=== PATIENT | female | born 1995 | race Caucasian/White ===

== ENCOUNTER 2020-05-11 13:17 | Outpatient (REF) | payer MEDICAID, SELFPAY | END 2020-05-11 13:18 | disposition home or self-care (01) | LOC: HO.LAB 13:17 | PROVIDERS: Visit Provider Internal Medicine | DX: Z20.828 Contact with and (suspected) exposure to other viral communicable diseases (principal) | CPT/HCPCS: C9803; U0003 ==

== ENCOUNTER 2022-03-25 08:57 | Day surgery (SDC) | payer MEDICAID, SELFPAY ==
[2022-02-27 10:45] VITALS: BMI 38.3
--- NOTE | 2022-03-03 10:23 | HO.ANESPROP2 ---
HPI - Anesthesia Eval Consult details Narrative: 26yo F for Colonoscopy PMFSH Active Problems Active Problems: All Active Problems (Updated 03/03/22 @ 09:38 by Reena Dowling, RN) Exposure to COVID-19 virus (Acute) Past Medical History Medical History (Updated 03/03/22 @ 09:38 by Reena Dowling, RN) Back pain Hx of Clostridium difficile infection Hx: UTI (urinary tract infection) Surgical History Surgical History (Updated 03/03/22 @ 09:39 by Reena Dowling RN) Previous section Meds Allergies Allergy/AdvReac Type Severity Reaction Status Date / Time Penicillins Allergy Unknown Verified 02/27/22 10:52 Exam Exam Date and Time: March 03, 2022 1023 Height,Weight and Vital Signs: Height 5 ft 1 in Weight 92.079 kg Assessment and Plan Assessment Anesthesia Assessment: Chart Reviewed
--- NOTE | 2022-03-24 10:59 | HO.ANESPROP2 ---
Documented by User: Sherri Carvalho NP 03/24/22 11:00 HPI - Anesthesia Eval Consult details Narrative: 26yo F for Colonoscopy PMFSH Active Problems Active Problems: All Active Problems (Updated 03/03/22 @ 09:38 by Reena Dowling, RN) Exposure to COVID-19 virus (Acute) Past Medical History Medical History Back pain Hx of Clostridium difficile infection Hx: UTI (urinary tract infection) Surgical History Surgical History (Updated 03/03/22 @ 09:39 by Reena Dowling, RN) Previous section Social History Social History Patient Tobacco Use Status: Current someday Tobacco user Tobacco use type: Cigarette Cigarettes Per Day: 44 Years Smoked: 7 Smoked in Last 30 Days: Yes Use of substances other than those prescribed or required for medical reasons: No Are you DNR?: No Advance Directives: No Advance Directives Information Provided: Yes Meds Allergies Allergy/AdvReac Type Severity Reaction Status Date / Time Penicillins Allergy Unknown Verified 03/25/22 09:53 Home Medications Medication Instructions Recorded Confirmed Last Taken Type Nexplanon 03/25/22 03/25/22 Unknown History Exam Exam Date and Time: March 24, 2022 1059 Height,Weight and Vital Signs: Height 5 ft 1 in Weight 92.079 kg Assessment and Plan Assessment Anesthesia Assessment: Chart Reviewed Documented by User: Yaya Banks MD 03/25/22 10:32 PMFSH Past Medical History Medical History Back pain Hx of Clostridium difficile infection Hx: UTI (urinary tract infection) Family History Family history of problems with anesthesia: No Surgical History Surgical History (Updated 03/03/22 @ 09:39 by Reena Dowling RN) Previous section History of Problems with Anesthesia: No Social History Social History Patient Tobacco Use Status: Current someday Tobacco user Tobacco use type: Cigarette Cigarettes Per Day: 44 Years Smoked: 7 Smoked in Last 30 Days: Yes Use of substances other than those prescribed or required for medical reasons: No Are you DNR?: No Advance Directives: No Advance Directives Information Provided: Yes Meds Allergies Allergy/AdvReac Type Severity Reaction Status Date / Time Penicillins Allergy Unknown Verified 03/25/22 09:53 Home Medications Medication Instructions Recorded Confirmed Last Taken Type Nexplanon 03/25/22 03/25/22 Unknown History Exam Airway Mallampati Class: III TM Dist: >3cm Neck ROM: Full Loose/Missing/Broken Teeth: No Heart: rrr Lungs: clear Assessment and Plan Final Anesthetic Review Family History of Problems with Anesthesia: No History of Problems with Anesthesia: No NPO: Yes ASA Class: II Final Preanesthetic Review: No Changes in Pt Med Stat, Meds/Allgs Chart Reviewed, Consent Obtained/Reviewed and Anes Risks/Benef Reviewed Patient Risk: Intermediate Procedure Risk: Low Anesthetic Plan Anesthetic Plan: MAC: Disposition: Standard PACU
[2022-03-25 09:47] VITALS: BMI 35.9
[2022-03-25 09:54] VITALS: BP 125/74; PULSE 84; RESP 16; TEMP 36.6; O2SAT 100
[2022-03-25 10:00] LABS: UPreg QC Valid YES; Urine Pregnancy NEGATIVE (NEGATIVE)
--- NOTE | 2022-03-25 10:30 | MHC.SHP ---
Pre-Procedural Eval Section A Date of Service: 03/25/22 Section B Chief Complaint: digestive problems Details of Present Illness: see H*P no changes Relevant Family History (Specify if Yes): No Relevant Social History: Tobacco Use Present Medications: None Medical History: No relevant PMH History of Previous Operations: No relevant previous surgery Allergies: Allergies Allergy/AdvReac Type Severity Reaction Status Date / Time Penicillins Allergy Unknown Verified 03/25/22 09:53 Review of Systems Sugical H&P ROS: Negative: Constitution, Cardiovascular, Respiratory, Neurological, Psychiatric, Hem-Onc, Allergic/Immunologic, Gastrointestinal, Genitourinary, Musculoskeletal, Integumentary, Endocrine and Eyes/Ears/Nose/Throat Exam Surgical H&P Exam: Normal: HEENT, Normal: Heart, Normal: Lungs, Normal: Extremities, Normal: Abdomen, Normal: Skin and Normal: Neurological Plan Diagnosis/Plan: Unchanged I have reviewed the history and physical and performed a pertinent physical examination on my patient. No changes have occurred unless specified.
[2022-03-25] MEDS: Lactated Ringers 1,000 ML 100 ML IVCONT (10:36)
--- NOTE | 2022-03-25 11:05 | P.BOP_ITS ---
Brief Operative Note Date of Service: 03/25/22 Pre-op diagnosis: change in bowels Post-op diagnosis: same Procedure: colonooscopy Surgeon: Truman Polanco Anesthesia: MAC Was an It Network Administrator used for this Procedure?: No Estimated blood loss (mL): 2 Pathology: other Condition: stable Disposition: PACU
[2022-03-25 11:08] VITALS: BP 122/75; PULSE 72; RESP 20; TEMP 37; O2SAT 100
[2022-03-25 11:23] VITALS: BP 140/90; PULSE 65; RESP 20; O2SAT 100
--- NOTE | 2022-03-25 11:29 | OP_ITS ---
SURGEON: Truman Polanco MD INDICATIONS: Change in bowel habits PREOPERATIVE DIAGNOSIS: POSTOPERATIVE DIAGNOSIS: PROCEDURE PERFORMED: Colonoscopy to the terminal ileum with biopsy. ESTIMATED BLOOD LOSS: COMPLICATIONS: ANESTHESIA: Monitored anesthesia care. ASSISTANTS: SPECIMENS: DESCRIPTION OF PROCEDURE: History and physical were performed. The risks and benefits of the procedure were explained to the patient. Informed consent was obtained. The patient was placed in the left lateral decubitus position. A digital rectal exam was performed and was found to be normal. The Olympus pediatric video colonoscope was introduced into the rectum and advanced to the cecum without difficulty. The cecum was identified by transillumination, palpation, and identification of ileocecal valve examination was performed. The scope was removed. She tolerated the procedure well and was taken to the recovery area in stable condition. The procedure was performed on 03/25/2022. FINDINGS: The terminal ileum was normal. The visualized colonic mucosa was normal. The quality of the prep was good. No polyps were identified. There was no evidence of colitis or Crohn disease. Biopsies were obtained from the terminal ileum and sigmoid. Retroflexed examination was normal. IMPRESSION: Normal colonoscopy. RECOMMENDATION: 1. Follow up the biopsy results. 2. Colon cancer screening should be started at age 45 and performed every 10 years in this average risk individuals. MD MAHIN Sibley/KESHA / [id number]
[2022-03-25 11:35] VITALS: BP 126/72; PULSE 66; RESP 16; TEMP 36.4; O2SAT 100
== END 2022-03-25 12:10 | disposition home or self-care (01) ==
PROVIDERS: Nurse Practitioner; Visit Provider Internal Medicine Gastroenterology
PROC: 0DJD8ZZ Inspection of Lower Intestinal Tract, Via Natural or Artificial Opening Endoscopic (ICD-10-PCS; CPT 45378; principal; 2022-03-25 10:30)
DX: R19.4 Change in bowel habit (principal); Z86.19 Personal history of other infectious and parasitic diseases; M54.9 Dorsalgia, unspecified; Z87.440 Personal history of urinary (tract) infections; F17.210 Nicotine dependence, cigarettes, uncomplicated; Z88.0 Allergy status to penicillin
CPT/HCPCS: 45380; 81025; 88305

== ENCOUNTER 2023-02-07 15:40 | Emergency (ER) | payer MEDICAID, SELFPAY ==
--- NOTE | ~2023-02-07 | US_ITS ---
EXAMINATION: US VENOUS ULTRASOUND WITH DOPPLER LOWER EXTREMITY, LEFT CLINICAL INFORMATION: Left lower extremity pain and swelling COMPARISON: None available. TECHNIQUE: Ultrasound of the deep veins is performed from the hip to the calf with compression sonography and color and pulse Doppler assessment. Spectral analysis with color-flow imaging is performed. FINDINGS: There is normal venous compression and respiratory variation and augmented flow. The visualized common femoral vein, superficial femoral vein, profunda femoral vein, popliteal vein, and the trifurcation region shows no evidence of deep venous thrombosis. There is no significant popliteal fossa cyst. If the patient's symptoms persist, followup ultrasound in 5 days 7 days might be of value to exclude proximal propagation from a non-visualized calf vein. US/US venous duplex LE LT IMPRESSION: No DVT demonstrated in the left lower extremity.
--- NOTE | 2023-02-07 15:43 | ED_ITS ---
HPI - Extremity Injury (Lower) General Chief Complaint: Extremity Injury, Lower Stated Complaint: left lower leg swelling Time Seen by Provider: 02/07/23 16:45 Source: patient Mode of arrival: ambulatory Limitations: no limitations History of Present Illness HPI Narrative: Patient is a 27-year-old female presenting to the emergency department with several days of left calf swelling and tightness. Reports that she does walk extensively for work. Denies any falls or other injuries. States she had her Nexplanon implant removed in December. She does smoke via vape. She denies any chest pain or shortness of breath. complaint: other (leg pain) Onset (ago): day(s) Severity: moderate Relieving factors: rest Exacerbating factors: weight bearing Other symptoms: none Related Data Home Medications Medication Instructions Recorded Confirmed Nexplanon 03/25/22 03/25/22 Allergies Allergy/AdvReac Type Severity Reaction Status Date / Time Penicillins Allergy Unknown Verified 03/25/22 09:53 Review of Systems Review of Systems: As per HPI. Yes all other systems are reviewed and are negative Constitutional: Constitutional: Reports as per HPI PMFSH Past Medical History Medical History Back pain Hx of Clostridium difficile infection Hx: UTI (urinary tract infection) Surgical History (Updated 03/03/22 @ 09:39 by Reena Dowling RN) Previous section Social History Social History Patient Tobacco Use Status: Current someday Tobacco user Tobacco use type: Cigarette Cigarettes Per Day: 44 Years Smoked: 7 Advance Directives: No Advance Directives Information Provided: No Physical Exam Vital Signs: Vital Signs: Last Vital Signs Temp 98.2 F 02/07/23 15:44 Pulse 88 02/07/23 15:44 Resp 18 02/07/23 15:44 BP 153/88 H 02/07/23 15:44 Pulse Ox 100 02/07/23 15:44 O2 Del Method Room Air 02/07/23 15:44 BMI result Body Mass Index 35.9 Vital signs have been reviewed and appear to be correct. Blood pressure elevated. Heart rate normal. Respiratory rate normal. Temperature normal. Oxygen saturation normal. Const: General: cooperative, healthy appearing and no acute distress Orientation/consciousness: oriented to person, oriented to place, oriented to time and patient oriented x3 Limitations: no limitations HEENT: Head: Yes normocephalic and Yes atraumatic Ears: external ears normal General nose exam: Normal external nose present Face and sinus: Yes face symmetric Mouth: oropharynx normal and moist mucous membranes Throat: Yes uvula midline Eyes: Pupils: Equal, round and reactive pupils present Neck: Neck: Yes normal visual inspection and Yes supple Resp: Effort & Inspection: normal respiratory effort and able to speak in complete sentences Auscultation: clear to auscultation bilaterally Cardio: Rate: regular rate Rhythm: regular rhythm Heart sounds: S1 normal heart sound present and S2 normal heart sound present GI: Palpation (GI): Soft to palpation and nontender Auscultation: normoactive bowel sounds : General: Yes no CVA tenderness Back/Spine/Pelvis: Back: no CVA tenderness Skin: General skin exam: elasticity normal and turgor normal Neuro: General: oriented to person, oriented to place, oriented to time, patient oriented x3, gait normal, tone normal, moves all extremities, Normal light touch and pain sensation, no focal motor deficits, CN's II-XI intact bilaterally, normal sensation to monofilament and deep tendon reflexes 2+ bilaterally Cranial nerves: Yes Equal, round and reactive pupils present Cognition (Neuro): normal cognition Motor exam (neuro): 5/5 motor strength present throughout, Normal motor muscle tone present throughout and Motor abnormalities not present Sensory Exam: Normal double simultaneous stimulation for sensation Extrem: General: Yes full ROM, Yes normal exam except as noted, Yes no pedal edema and Yes no calf tenderness Left lower extremity: lower leg Details: normal to inspection, tenderness Location: of the posterior calf, localized s welling Location: of the proximal lower leg (mild) and no edema; no erythema, no palpable cords, no ecchymosis and no unusual warmth Psych: Mental Status: mental status grossly normal Affect: normal affect Thought process: Normal thought process present Course Course Course Narrative: RME: 27yo F w/no sig PMHx c/o LLE pain and swelling/tightness x3-4 days. Admits had Nexplonon removed at the end of December & smoking Vapes. Denies recent travel or hx clots. Also reports mild SOB x4 days LLE with mild swelling, no calf ttp, NV intact US & D-dimer ordered Full HPI, ROS and PE to be performed by primary ED provider. Medical Decision Making Medical Decision Making [facility] [place] Narrative: Patient is a 27-year-old female presenting to the emergency department with several days of left calf swelling and tightness. On exam patient is awake, A+Ox3, VS WNL, afebrile, normal neurological exam without focal deficits, tenderness to left calf and popliteal fossa, mild swelling appreciated, 5/5 strength, full ROM to knee, 2+ DP and PT pulses, DTRs 2+. Given reported symptoms and physical exam findings, initial differential includes DVT, calf strain, cellulitis, Gutiérrez's cyst. Ultrasound notable for no DVT, no popliteal fossa cyst. Discussed results with patient and that pain is likely related to a muscle strain. Will provide patient with an Wilbert wrap in the ED. Instructed patient to follow-up with her PCP as she may require a repeat ultrasound if symptoms persist. Return precautions discussed at bedside. Advised patient alternate Tylenol and ibuprofen, apply ice several times daily, warm baths with Epsom salts. Patient verbalized understanding of and agreement with plan. Differential Diagnosis Differential Diagnoses: The differential diagnosis associated with the presentation includes As per [facility] [place]. Lab Data [facility] [place] Lab Attestation statement: I reviewed the patient's lab results. As per [facility] [place] Labs: Lab Results 02/07/23 Range/Units 16:55 D-Dimer High Sensitivty < 150 NG/ML Independent Interpretation I performed an independent interpretation of an: Ultrasound Interpretation: No DVT or cyst Radiology Impression Discussion of test interpretation with radiology: I have reviewed the radiologist's reading. Radiologist Impression: INDINGS: There is normal venous compression and respiratory variation and augmented flow. The visualized common femoral vein, superficial femoral vein, profunda femoral vein, popliteal vein, and the trifurcation region shows no evidence of deep venous thrombosis. ? There is no significant popliteal fossa cyst. If the patient's symptoms persist, followup ultrasound in 5 days 7 days might be of value to exclude proximal propagation from a non-visualized calf vein. US/US venous duplex LE IMPRESSION: No DVT demonstrated in the left lower extremity. External Record Review External record reviewed: Inpatient record, Office record and Outpatient record Discharge Plan Discharge Clinical Impression: Pain of left calf Patient Disposition: Home, Self-Care Instructions: Leg Cramps (ED), Leg Pain (ED) Additional Instructions: You are evaluated in the emergency department today for left calf pain. Your ultrasound did not show evidence of a DVT, also known as a blood clot, or a cyst. Your pain is likely related to a muscle strain. You can take 600 mg ibuprofen or 650 mg Tylenol every 6 hours as needed for discomfort. Elevate your leg while at rest and perform gentle stretching exercises several times daily. You can apply ice for 10-15 minutes at a time several times daily, using caution not to apply ice directly to skin. You can take warm baths with Epsom salts. Please follow-up with your primary care provider this week. If symptoms persist, you may need require a repeat ultrasound. Return to the emergency department if you develop worsening pain, new weakness, numbness, or tingling, change of color in your leg, chest pain or shortness of breath, or any other concerning symptoms. Prescriptions: No Action Nexplanon
[2023-02-07 15:44] VITALS: BP 153/88; PULSE 88; RESP 18; TEMP 36.8; O2SAT 100; BMI 35.9
[2023-02-07 17:22] LABS: D Dimer High Sensitivity < 150 NG/ML
[2023-02-07 19:01] VITALS: BP 156/80; PULSE 78; RESP 18; O2SAT 100
== END 2023-02-07 19:02 | disposition home or self-care (01) ==
PROVIDERS: Physician Assistant; Emergency Provider Student in an Organized Health Care Education/Training Program
DX: M79.605 Pain in left leg (principal); F17.210 Nicotine dependence, cigarettes, uncomplicated
CPT/HCPCS: 36415; 85379; 93971; 99284

== ENCOUNTER 2023-05-24 10:07 | Emergency (ER) | payer SELFPAY ==
--- NOTE | ~2023-05-24 | CT_ITS ---
EXAMINATION: CT ABDOMEN AND PELVIS WITHOUT CONTRAST CLINICAL INFORMATION: Bilateral flank pain and urinary retention. COMPARISON: Renal ultrasound January 14, 2017 TECHNIQUE: Multidetector volumetric imaging was performed from the superior aspect of the liver through the pubic symphysis. Sagittal and coronal reformatted images were obtained on the technologist's workstation. This CT examination was performed using dose optimization techniques as appropriate, variously including the following: *Automated exposure control *Adjustment of mA and/or kV according to patient size (this includes techniques or standardized protocols for targeted exams where dose is matched to indication/reason for exam; i.e. extremities or head) *Use of iterative reconstruction technique DLP: 777 mGy-cm FINDINGS: Visualized lung bases are well aerated. The liver is normal in size. The gallbladder is normal in appearance. The pancreas, spleen and adrenal glands are unremarkable. Symmetrically sized kidneys. No renal calculi or hydronephrosis of either kidney. The stomach is relatively decompressed. Normal caliber loops of small and large bowel. Normal appendix. Tiny fat-containing umbilical hernia. Also noted is a small fat-containing supraumbilical hernia which demonstrates a fascial defect measuring approximately 1.8 x 1.3 cm in transverse by craniocaudal dimension. Normal caliber abdominal aorta. No retroperitoneal lymphadenopathy. The bladder is normal in appearance. Unremarkable CT appearance of the uterus. No gross free pelvic fluid. No inguinal lymphadenopathy. No acute osseous abnormality. Mild sclerotic changes along the iliac portions of both sacroiliac joints. CT/CT abdomen pelvis wo IV con IMPRESSION: 1. No renal calculi or hydronephrosis of either kidney. 2. Small fat-containing supraumbilical hernia. Fleischner guidelines were followed.
[2023-05-24 10:33] VITALS: BP 154/74; PULSE 94; RESP 18; TEMP 36.4; O2SAT 98; BMI 37.6
[2023-05-24 10:50] LABS: Appearance Urine Cloudy; Color Urine Yellow; Glucose Urine UA Negative (Negative); Leukocyte Esterase Urine Small (1+) (Negative); Nitrite Urine Negative (Negative); PH 6.5 (5.0-9.0); Specific Gravity - Urine 1.025 (1.005-1.025); UMIC TRIGGER UACC YES; Urine Blood Negative (Negative); Urine Ketones Trace mg/dL (Negative); Urine Protein Negative (Neg-Trace)
[2023-05-24 10:55] LABS: Bacteria Urine 4+ (None Seen); Hyaline Casts Urine 0-2 /LPF (0-2); RBC Urine 0-2 /HPF (0-2); UACC Culture Trigger YES
--- NOTE | 2023-05-24 14:33 | ED_ITS ---
HPI - Female Genitourinary General Chief complaint: Urogenital-Female Stated complaint: Back pain Time Seen by Provider: 05/24/23 13:22 Source: patient Mode of arrival: ambulatory Limitations: no limitations History of Present Illness HPI Narrative: 27 year old female with no signidicant pmhx presents to the ED today for evaluation of bilateral flank pain, urinary hesitancy and vomiting x1 day. Reports urinary frequency yesterday and hesitancy this morning. Has only urinated once today. Reports multiple episodes of vomiting over the last day. Flank pain does not radiate. Has been constant. Has not taken anything at home for this. Denies chance of . Denies history of kidney stones. Denies fever, chills, back pain, abdominal pain, dysuria or hematuria, vaginal discharge. Denies sick contacts. Related Data Home Medications Medication Instructions Recorded Confirmed Nexplanon 03/25/22 03/25/22 Previous Rx's Medication Instructions Recorded cefuroxime axetil 250 mg tablet 250 mg PO BID 7 days #14 tabs 05/24/23 Allergies Allergy/AdvReac Type Severity Reaction Status Date / Time Penicillins Allergy Unknown Verified 05/24/23 10:32 Review of Systems 2 Review of Systems: Constitutional: No fever, chills, fatigue, night sweats, weight changes ENT/Mouth: No ear pain, hearing loss, nasal congestion, sinus pain, rhinorrhea, sore throat Eyes: No eye pain, swelling, redness, vision changes, discharge Cardio: No chest pain, palpitations, MUÑOZ, orthopnea, peripheral edema Pulm: No SOB, cough, sputum, wheezing, dyspnea, hemoptysis GI: No nausea, vomiting, hematemesis, abdominal pain, diarrhea, constipation, hematochezia, melena : No irregular bleeding, dysuria, +frequency, No urgency, +hesitancy, hematuria, + flank pain, +urinary flow changes, No urinary incontinence or retention MSK: No back pain, neck pain, joint pain, myalgias Skin: No lesions, rashes Neuro: No weakness, numbness, paresthesias, LOC, dizziness, headache All other systems reviewed and are negative. [facility] Past Medical History Attestation statement: The following information was validated with the patient. Source: old records reviewed and nursing notes reviewed Medical History Hx: UTI (urinary tract infection) Back pain Hx of Clostridium difficile infection Surgical History Previous section Social History Social History Alcohol intake: never Patient Tobacco Use Status: Current someday Tobacco user Tobacco use type: Cigarette Cigarettes Per Day: 44 Years Smoked: 7 Advance Directives: No Advance Directives Information Provided: No Physical Exam 2 Vital Signs: Vital Signs: Last Vital Signs Temp 97.6 F 05/24/23 10:33 Pulse 63 05/24/23 17:52 Resp 18 05/24/23 17:52 BP 154/74 H 05/24/23 10:33 Pulse Ox 98 05/24/23 17:52 O2 Del Method Room Air 05/24/23 17:52 BMI result Body Mass Index 37.6 Vital signs stable, afebrile. Const: General: cooperative, healthy appearing, comfortable, no acute distress, alert and awake Orientation/consciousness: patient oriented x3 L imitations: no limitations HEENT: Head: Yes normal to inspection Ears: hearing grossly normal bilaterally Eyes: General: appearance normal, both eyes and all related structures Neck: Neck: Yes normal visual inspection and Yes no meningeal signs Chest: Chest palpation & inspection: normal inspection of the chest Resp: Effort & Inspection: normal respiratory effort Auscultation: clear to auscultation bilaterally Cardio: Rate: regular rate Rhythm: regular rhythm Heart sounds: S1 normal heart sound present and S2 normal heart sound present Peripheral pulses: Peripheral pulses 2+ throughout GI: Inspection: Yes normal to inspection Palpation (GI): Soft to palpation, nontender, no guarding and no splenomegaly Auscultation: normal bowel sounds : General: Yes no CVA tenderness Back/Spine/Pelvis: Other: No midline spinous tenderness. No paraspinal muscle tenderness. No step off deformity. Back: no CVA tenderness Skin: General skin exam: no rashes or lesions noted Neuro: Other: Strength 5/5 intact throughout.? No saddle anesthesia.? Sensation intact to light touch.? Neurovascular intact distally.? General: patient oriented x3, gait normal, moves all extremities and no meningeal signs Extrem: General: Yes normal to inspection and Yes full ROM Course Course Course Narrative: 1730-- CBC without leukocytosis or anemia. Chemistry without acute electrolyte abnormality requiring intervention. Normal renal function. Serology negative for flu, RSV, COVID. Urine positive for infection. Negative for . CT abdomen/pelvis does not show renal stone or hydronephrosis. It does note an incidental finding of small fat containing supraumbilical hernia. This is not appreciated on exam. > discussed results with patient. Will send antibiotics to patient's pharmacy to treat for urinary tract infection. I do not suspect pyelonephritis at this time. Patient is well-appearing and has remained stable throughout ED visit today. No episodes of vomiting while in ED. Discussed strict return precautions. All questions answered at this time. Patient is agreeable with disposition and stable for discharge. Medical Decision Making Medical Decision Making [facility] Narrative: 27 year old female with no signidicant pmhx presents to the ED today for evaluation of bilateral flank pain, urinary hesitancy and vomiting x1 day. Vital signs stable, afebrile. Patient is nontoxic appearing and in no acute distress. RRR. Lungs clear to auscultation bilaterally. No midline spinous tenderness or paraspinal muscle tenderness bilaterally. No step-off deformity. No CVAT bilaterally. Abdomen soft, nontender, nondistended, no rebound tenderness or guarding. Normoactive bowel sounds x4. Clinical concern for viral syndrome, urinary tract infection, , nephrolithiasis, obstructive uropathy, renal colic, MSK sprain/strain, gastroenteritis. Unlikely pyelonephritis, vertebral fracture, cauda equina, epidural abscess, cord compression. Plan for basic labs, UA, urine , postvoid residual, viral serology, CT abdomen/pelvis, and re-evaluation. Differential Diagnosis Differential Diagnoses: The differential diagnosis associated with the presentation includes as above. Admission/Observation not indicated. Lab Data [facility] Lab Attestation statement: I reviewed the patient's lab results. as above. 05/24/23 14:45 05/24/23 14:45 Labs: Lab Results 05/24/23 05/24/23 05/24/23 Range/Units 10:40 14:45 14:54 WBC 6.2 (4.8-10.8) X10*3/uL RBC 4.31 (4.20-5.50) X10*6/uL Hgb 12.6 (12.0-16.0) g/dl Hct 36.0 L (37.0-47.0) % MCV 83.5 (80.0-98.0) fL MCH 29.2 (27.0-33.0) pg MCHC 35.0 (31.0-35.0) g/dl RDW 12.9 (11.0-16.0) % Plt Count 187 (160-400) X10*3/uL MPV 11.4 (9.4-12.3) fL Immature Gran % (Auto) 0.2 (0.0-0.4) % Neut % (Auto) 58.1 (45-73) % Lymph % (Auto) 34.7 (20-40) % [place] % (Auto) 5.8 (2-11) % Eos % (Auto) 1.0 (0-4) % Baso % (Auto) 0.2 (0-2) % Lymph # (Auto) 2.2 (1.2-4.9) X10*3/uL [place] # (Auto) 0.4 (0.1-1.2) X10*3/uL Eos # (Auto) 0.1 (0.0-0.4) X10*3/uL Baso # (Auto) 0.0 (0.0-0.2) X10*3/uL Abs Immat Gran (auto) 0.01 (0.00-0.03) X10*3/uL Absolute Neuts (auto) 3.6 (2.0-8.3) x10*3/uL Absolute Nucleated RBC 0.000 (0.0-0.012) X10*3/uL Nucleated RBC % (auto) 0.0 (0.0-0.2) /100WBC Sodium 142 (135-145) mmol/L Potassium 3.7 (3.3-5.1) mmol/L Chloride 107 (96-108) mmol/L Carbon Dioxide 25 (22-29) mmol/L Anion Gap 14 (12-20) BUN 19 H (9-16) mg/dL Creatinine 0.79 (0.5-1.4) mg/dL Estim Creat Clear Calc 108.4 Estimated GFR > 60 Random Glucose 92 (60-115) mg/dL Calcium 9.3 (8.4-10.2) mg/dL Magnesium 1.9 (1.6-2.6) mg/dL Urine Color Yellow Urine Appearance Cloudy Urine pH 6.5 (5.0-9.0) Ur Specific [place] 1.025 (1.005-1.025) Urine Protein Negative (Neg-Trace) mg/dL Urine Glucose (UA) Negative (Negative) mg/dL Urine Ketones Trace (Negative) mg/dL Urine Blood Negative (Negative) Urine Nitrite Negative (Negative) Ur Leukocyte Esterase Small (1+) H (Negative) Urine RBC 0-2 (0-2) /HPF Urine WBC 6-10 H (0-5) /HPF Ur Squamous Epith Cells 11-20 (0-2) /HPF Urine Bacteria 4+ (None Seen) Hyaline Casts 0-2 (0-2) /LPF Urine Test NEGATIVE (NEGATIVE) Influenza Type A (PCR) NEGATIVE (Negative) Influenza Type B (PCR) NEGATIVE (Negative) RSV RNA Qual (PCR) NEGATIVE (Negative) SARS-CoV-2 RNA (RT-PCR) NEGATIVE (Negative) Independent Interpretation I performed an independent interpretation of an: CT Scan Interpretation: CT abdomen pelvis without renal calculi or hydronephrosis, agree with radiologist's interpretation. Radiology Impression Discussion of test interpretation with radiology: I have reviewed the radiologist's reading. Radiologist Impression: CT abdomen pelvis wo IV con IMPRESSION: 1. No renal calculi or hydronephrosis of either kidney. 2. Small fat-containing supraumbilical hernia. Fleischner guidelines were followed. Independent Historian Clinical information obtained from an independent historian. History obtained from or confirmed by: Other (partner) External Record Review External record reviewed: Inpatient record Prescription Management I considered prescription management with: Pain Medication and Antibiotic Social Determinants Patient?s care significantly limited by Social Determinants of Health including: Other Social Determinant of Health Critical Care Time Critical Care Time Critical Care Time: No Discharge Plan Discharge Clinical Impression: Urinary tract infection Patient Disposition: Home, Self-Care Instructions: Urinary Tract Infection in Women (ED) Additional Instructions: Your labs today were normal. You tested negative for flu, RSV, COVID. The CT scan of your abdomen/pelvis did not demonstrate a kidney stone or enlargement of either kidney. Your urine was negative for and positive for infection. Ceftin is an antibiotic that has been sent to your pharmacy. Take this as prescribed and do not miss any doses. You must complete the entire course of antibiotics. If you do not, there is a risk of the infection coming back or worsening. Follow up with your primary care provider as needed. If you develop a fever or new/ worsening symptoms call 911 or come back to the ER for further evaluation. A cephalosporin antibiotic, softer bowel movements are to be expected. Call your provider you move her bowels more than 4 times a day, ear bowel movements are almost all liquid or if you get a rash. Prescriptions: New cefuroxime axetil 250 mg tablet 250 mg PO BID 7 Days Qty: 14 0RF No Action Nexplanon Stand Alone Forms: Work/School Release Interventions: ED Discharge Assessment Last Done: 05/24/23 17:52 Discharge Date/Time: 05/24/23 17:52
[2023-05-24 14:46] LABS: UPreg QC Valid YES; Urine Pregnancy NEGATIVE (NEGATIVE)
[2023-05-24 14:49] LABS: MANUAL DIFF FLAG NO
[2023-05-24 14:54] LABS: Basophils Percent Auto 0.2 % (0-2); Eosinophils Absolute Auto 0.1 X10*3/uL (0.0-0.4); Hemoglobin 12.6 g/dl (12.0-16.0); Imm Gran Abs Auto 0.01 X10*3/uL (0.00-0.03); Imm Gran Pct Auto 0.2 % (0.0-0.4); Lymphocytes Absolute Auto 2.2 X10*3/uL (1.2-4.9); Lymphocytes Percent Auto 34.7 % (20-40); Mean Corpuscular Hemoglobin 29.2 pg (27.0-33.0); Mean Corpuscular Volume 83.5 fL (80.0-98.0); Mean Platelet Volume 11.4 fL (9.4-12.3); Monocytes Absolute Auto 0.4 X10*3/uL (0.1-1.2); Monocytes Percent Auto 5.8 % (2-11); Neutrophils Absolute Auto 3.6 x10*3/uL (2.0-8.3); Neutrophils Percent Auto 58.1 % (45-73); Platelet Count 187 X10*3/uL (160-400); Red Blood Count 4.31 X10*6/uL (4.20-5.50); Red Cell Distribution Width 12.9 % (11.0-16.0); White Blood Count 6.2 X10*3/uL (4.8-10.8)
[2023-05-24 15:31] LABS: Anion Gap 14 (12-20); Blood Urea Nitrogen 19 mg/dL (9-16); Calcium 9.3 mg/dL (8.4-10.2); Carbon Dioxide 25 mmol/L (22-29); Chloride 107 mmol/L (96-108); Creatinine Clr Calc Pharmacy 108.4; Estimated Glomerular Filt Rate > 60; Glucose Random 92 mg/dL (60-115); Magnesium 1.9 mg/dL (1.6-2.6); Potassium 3.7 mmol/L (3.3-5.1); Sodium 142 mmol/L (135-145)
[2023-05-24 15:35] LABS: Influenza A PCR NEGATIVE (Negative); Influenza B PCR NEGATIVE (Negative); Resp Syncy Virus RNA Qual PCR NEGATIVE (Negative); SARS COV2 PCR INHOUSE NEGATIVE (Negative)
[2023-05-24 17:52] VITALS: PULSE 63; RESP 18; O2SAT 98
== END 2023-05-24 17:52 | disposition home or self-care (01) ==
PROVIDERS: Physician Assistant Medical; Emergency Provider Emergency Medicine
DX: N39.0 Urinary tract infection, site not specified (principal); R10.9 Unspecified abdominal pain; R35.0 Frequency of micturition; R11.10 Vomiting, unspecified; Z20.822 Contact with and (suspected) exposure to COVID-19; Z20.828 Contact with and (suspected) exposure to other viral communicable diseases
CPT/HCPCS: 0241U; 74176; 80048; 81001; 81025; 83735; 85025; 87086; 99283; 99284

== ENCOUNTER 2023-11-24 12:48 | Emergency (ER) | payer SELFPAY ==
[2023-11-24 13:04] VITALS: BP 135/81; PULSE 101; RESP 18; TEMP 37.2; O2SAT 99; BMI 37.4
--- NOTE | 2023-11-24 13:09 | ED_ITS ---
HPI - General Adult General Chief complaint: Skin/Abscess/Foreign Body Stated complaint: rash on abd chest Time Seen by Provider: 11/24/23 13:09 Source: patient Mode of arrival: ambulatory Limitations: no limitations History of Present Illness ED Provider: Jason Choudhary PA-C HPI narrative: 48-year-old female with no past medical history presents to ED for generalized itchy rash started since last night. Patient states rash on extremities, face, and abdomen. Patient denies any sensation of throat swelling, shortness of breath, tongue swelling, lip swelling, fever, or chills. Patient denies any new medication, cosmetics, detergents, or foods. Related Data Home Medications ?Medication ?Instructions ?Recorded ?Confirmed Nexplanon 03/25/22 03/25/22 Previous Rx's ?Medication ?Instructions ?Recorded cefuroxime axetil 250 mg tablet 250 mg PO BID 7 days #14 tabs 05/24/23 diphenhydramine HCl 25 mg capsule 25 mg PO TID PRN allergic reaction 11/24/23 (Benadryl) #21 caps famotidine 20 mg tablet (Pepcid) 20 mg PO BID 7 days #14 tabs 11/24/23 prednisone 20 mg tablet 40 mg (2 x 20 mg) PO DAILY 5 days 11/24/23 #10 tabs Allergies Allergy/AdvReac Type Severity Reaction Status Date / Time Penicillins Allergy Unknown Verified 11/24/23 13:08 Review of Systems 2 Review of Systems: Itchy rash Yes all other systems are reviewed and are negative PMFSH Past Medical History Medical History Hx: UTI (urinary tract infection) Back pain Hx of Clostridium difficile infection Surgical History Previous section Social History Social History Alcohol intake: never Patient Tobacco Use Status: Current someday Tobacco user Tobacco use type: Cigarette Cigarettes Per Day: 44 Years Smoked: 7 Advance Directives: No Advance Directives Information Provided: No Do you have a plan to hurt others: No Plan Physical Exam ED Vital Signs: Vital Signs - 24 hr 11/24/23 13:04 11/24/23 13:25 Temperature 98.9 F 98 F Pulse Rate 101 H 101 H Respiratory Rate 18 18 Blood Pressure 135/81 138/81 Pulse Oximetry 99 99 Oxygen Delivery Method Room Air Room Air BMI result Body Mass Index 37.4 Const General: cooperative, healthy appearing, comfortable, no acute distress, well developed, alert and awake Orientation/consciousness: oriented to person, oriented to place, oriented to time and patient oriented x3 HENLA Other: Positive for slight hives on face. Negative for lip swelling, tongue swelling, uvula swelling. Head: Yes normal to inspection, Yes No palpable skull fracture present, Yes normocephalic, Yes atraumatic and No abrasion Eyes General: appearance normal, both eyes and all related structures Neck Neck: Yes normal visual inspection, Yes full ROM, Yes no lymphadenopathy, Yes no meningeal signs, Yes trachea midline, Yes supple, No anterior neck swelling and No tender Chest Chest palpation & inspection: normal palpation of entire chest wall Chest/axillae images: 2 1. Positive for hives 2. Positive for hives Resp Effort & Inspection: normal respiratory effort and able to speak in complete sentences Auscultation: clear to auscultation bilaterally Cardio Jugular venous distension: no JVD Heart sounds: S1 normal heart sound present and S2 normal heart sound present GI Other: Positive for you to Uticaria HIVes Inspection: Yes normal to inspection Palpation (GI): Soft to palpation, not firm, nontender, no guarding and not rigid General: No CVA tenderness and Yes no CVA tenderness Back/Spine/Pelvis Other: postive for hives Back: no CVA tenderness, No CVA tenderness and No back tenderness Skin Other: Generalized hives General skin exam: no rashes or lesions noted, elasticity normal and turgor normal Neuro General: oriented to person, oriented to place, oriented to time, patient oriented x3, gait normal, tone normal, moves all extremities, Normal light touch and pain sensation, no meningeal signs, no focal motor deficits, CN's II-XI intact bilaterally and normal sensation to monofilament Extrem General: Yes normal to inspection and Yes full ROM Elbow/forearm/wrist images: 2 1. Positive hives. 2. Positive hives Psych Appearance: grossly normal, well kempt and not disheveled Course Course Course Narrative: RME: Medical Decision Making Medical Decision Making MDM Narrative: 28-year-old female presents to ED for generalized hives presented as allergic reaction. Presently not suspecting anaphylactic reaction. Not suspecting Marlon Gary syndrome. Patient not in any respiratory distress. Patient will be discharged with Benadryl prednisone steroids. Differential Diagnosis Differential Diagnoses: The differential diagnosis associated with the presentation includes (Allergic reaction, anaphylaxis, cellulitis) Admission/Observation Consideration of admission/observation: Escalation of care including admission/observation considered Independent Historian Clinical information obtained from an independent historian. History obtained from or confirmed by: Other (Patient) External Record Review External record reviewed: Other (Prior visits) Prescription Management I considered prescription management with: Other (Benadryl prednisone Pepcid) Discharge Plan Discharge Clinical Impression: Allergic reaction Patient Disposition: Home, Self-Care Instructions: General Allergic Reaction (ED) Additional Instructions: Recommend follow-up with your primary care provider. You may need a patch test. Return to the ED immediately for any swelling of lips, swelling of tongue, sensation of throat closing, chest pain, shortness of breath, worsening rash, fever, chills, skin peeling, or any other concerning symptoms. Prescriptions: New diphenhydramine HCl [Benadryl] 25 mg capsule 25 mg PO TID PRN (Reason: allergic reaction) Qty: 21 0RF prednisone 20 mg tablet 40 mg PO DAILY 5 Days Qty: 10 0RF famotidine [Pepcid] 20 mg tablet 20 mg PO BID 7 Days Qty: 14 0RF No Action Nexplanon cefuroxime axetil 250 mg tablet 250 mg PO BID 7 Days Qty: 14 0RF Stand Alone Forms: Work/School Release Interventions: ED Discharge Assessment Last Done: 11/24/23 13:25 Discharge Date/Time: 11/24/23 13:26 Print Language: Trinid[place]
[2023-11-24 13:25] VITALS: BP 138/81; PULSE 101; RESP 18; TEMP 36.6; O2SAT 99
== END 2023-11-24 13:26 | disposition home or self-care (01) ==
PROVIDERS: Emergency Provider Emergency Medicine
DX: R21 Rash and other nonspecific skin eruption (principal); T78.40XA Allergy, unspecified, initial encounter; X58.XXXA Exposure to other specified factors, initial encounter; F17.210 Nicotine dependence, cigarettes, uncomplicated
CPT/HCPCS: 99282; 99283

== ENCOUNTER 2024-04-26 10:15 | Emergency (ER) | payer MEDICAID, SELFPAY ==
--- NOTE | ~2024-04-26 | US_ITS ---
EXAMINATION: US OBSTETRICAL ULTRASOUND CLINICAL INFORMATION: Cramping. Vaginal spotting. COMPARISON: None available. LMP: 02/22/2024.. Gestational age by maternal dates is 9 weeks and 1 day. Estimated date of delivery by maternal dates is 11/28/2024. TECHNIQUE: Real-time transabdominal and transvaginal obstetrical pelvic ultrasound using grayscale and color Doppler technique. FINDINGS: The uterus is in anteversion flexion position with normal morphology. There is a single intrauterine gestational sac with visible yolk sac. Gestational sac is in the left upper uterine cavity/fundus. There is no embryo/fetus, and cardiac activity. There is no significant subchorionic hemorrhage or hematoma. No HR.. No pole. . MATERNAL ADNEXA: The right maternal ovary measures 3 x 1 x 1 cm. Volume is 3 cc. The left maternal ovary measures 3 x 2 x 3 cm. Volume is 13 cc No gross solid or cystic lesion. There is flow on color Doppler interrogation of the ovaries. No maternal pelvic ascites. US/US OB pelvic and transvaginal IMPRESSION: Single intrauterine gestational sac without a pole. Consider early . Recommend follow-up ultrasound. No ovarian torsion. Electronically signed by: Ritchie Sutton MD 04/26/2024 01:35 PM EST
[2024-04-26 10:24] VITALS: BP 135/55; PULSE 88; RESP 16; TEMP 36.7; O2SAT 100; BMI 38.0
[2024-04-26 11:38] LABS: MANUAL DIFF FLAG NO
[2024-04-26 11:40] LABS: Appearance Urine Cloudy; Color Urine Yellow; Glucose Urine UA Negative (Negative); Leukocyte Esterase Urine Moderate (2+) (Negative); Nitrite Urine Positive (Negative); UMIC TRIGGER UACC YES; Urine Blood Negative (Negative); Urine Ketones Negative (Negative); Urine Protein Negative (Neg-Trace)
[2024-04-26 11:42] LABS: Bacteria Urine 4+ (None Seen); Hyaline Casts Urine 0-2 /LPF (0-2); RBC Urine 0-2 /HPF (0-2); UACC Culture Trigger YES; WBC Urine 21-50 /HPF (0-5)
[2024-04-26 11:44] LABS: Basophils Percent Auto 0.2 % (0-2); Eosinophils Absolute Auto 0.1 X10*3/uL (0.0-0.4); Eosinophils Percent Auto 1.4 % (0-4); Hematocrit 36.2 % (37.0-47.0); Hemoglobin 12.8 g/dl (12.0-16.0); Imm Gran Abs Auto 0.02 X10*3/uL (0.00-0.03); Imm Gran Pct Auto 0.4 % (0.0-0.4); Lymphocytes Absolute Auto 1.4 X10*3/uL (1.2-4.9); Lymphocytes Percent Auto 24.7 % (20-40); Mean Corpuscular HGB Conc 35.4 g/dl (31.0-35.0); Mean Corpuscular Hemoglobin 29.6 pg (27.0-33.0); Mean Corpuscular Volume 83.6 fL (80.0-98.0); Monocytes Absolute Auto 0.3 X10*3/uL (0.1-1.2); Neutrophils Absolute Auto 3.8 x10*3/uL (2.0-8.3); Neutrophils Percent Auto 67.3 % (45-73); Platelet Count 222 X10*3/uL (160-400); Red Blood Count 4.33 X10*6/uL (4.20-5.50); Red Cell Distribution Width 12.5 % (11.0-16.0); White Blood Count 5.6 X10*3/uL (4.8-10.8)
[2024-04-26 12:05] VITALS: BP 127/56; PULSE 83; RESP 16; TEMP 36.9; O2SAT 99
[2024-04-26 12:07] LABS: Alanine Aminotransferase 19 U/L (0-31); Albumin Level 4.3 g/dL (3.5-5.0); Alkaline Phosphatase 66 U/L (39-117); Anion Gap 10 (12-20); Aspartate Amino Transferase 19 U/L (5-31); Bilirubin Total 0.4 mg/dL (0.0-1.0); Blood Urea Nitrogen 11 mg/dL (9-16); Calcium 9.6 mg/dL (8.4-10.2); Carbon Dioxide 26 mmol/L (22-29); Chloride 106 mmol/L (96-108); Creatinine Clr Calc Pharmacy 131.4; Estimated Glomerular Filt Rate > 60; Glucose Random 84 mg/dL (60-115); Potassium 3.9 mmol/L (3.3-5.1); Sodium 138 mmol/L (135-145); Total Protein 7.3 g/dL (6.5-8.0)
[2024-04-26 12:08] LABS: HCG Quantitative 6864 mIU/mL
--- NOTE | 2024-04-26 12:36 | ED_ITS ---
HPI - General Chief complaint: Vaginal Bleeding Stated complaint: Vaginal bleeding, pt is Time Seen by Provider: 04/26/24 12:02 Source: patient, RN notes reviewed and old records reviewed Mode of arrival: ambulatory History of Present Illness ED Provider: Melisa Nowak PA-C HPI Narrative: 28-year-old female with positive home test, LMP 16 presenting to the ED complaining of lower abdominal cramping and vaginal spotting x this morning. Admits had positive home test on 04/14, [facility] that was initially 44, subsequent 88 two days later. Has not yet had OB care/follow-up. Does report clear vaginal discharge. Denies nausea, vomiting, dysuria/hematuria, fever Related Data Home Medications ?Medication ?Instructions ?Recorded ?Confirmed Nexplanon 03/25/22 03/25/22 Previous Rx's ?Medication ?Instructions ?Recorded cefuroxime axetil 250 mg tablet 250 mg PO BID 7 days #14 tabs 05/24/23 diphenhydramine HCl 25 mg capsule 25 mg PO TID PRN allergic reaction 11/24/23 (Benadryl) #21 caps famotidine 20 mg tablet (Pepcid) 20 mg PO BID 7 days #14 tabs 11/24/23 prednisone 20 mg tablet 40 mg (2 x 20 mg) PO DAILY 5 days 11/24/23 #10 tabs cephalexin 500 mg capsule 500 mg PO BID 5 days #10 caps 04/26/24 Allergies Allergy/AdvReac Type Severity Reaction Status Date / Time Penicillins Allergy Unknown Verified 04/26/24 10:28 Review of Systems 2 Review of Systems: Yes all other systems are reviewed and are negative Constitutional: Constitutional: Reports as per [facility] Past Medical History Attestation statement: The following information was validated with the patient. Source: old records reviewed Medical History Hx: UTI (urinary tract infection) Back pain Hx of Clostridium difficile infection Surgical History Previous section Social History Social History Alcohol intake: never Patient Tobacco Use Status: Current someday Tobacco user Tobacco use type: Cigarette Cigarettes Per Day: 44 Years Smoked: 7 Physical Exam 2 Vital Signs: Vital Signs: Last Vital Signs Temp 98.3 F 04/26/24 14:16 Pulse 80 04/26/24 14:16 Resp 14 04/26/24 14:16 BP 115/75 04/26/24 14:16 Pulse Ox 100 04/26/24 14:16 O2 Del Method Room Air 04/26/24 14:16 BMI result Body Mass Index 38.0 Const: General: cooperative, healthy appearing and no acute distress O rientation/consciousness: patient oriented x3 Limitations: no limitations HEENT: Head: Yes normal to inspection and Yes atraumatic Ears: hearing grossly normal bilaterally General nose exam: Normal external nose present Face and sinus: Yes normal facial exam Eyes: General: appearance normal, both eyes and all related structures EOM: EOMs intact bilaterally Neck: Neck: Yes normal visual inspection and Yes no meningeal signs Resp: Effort & Inspection: normal respiratory effort and no respiratory distress Auscultation: clear to auscultation bilaterally Cardio: Rate: regular rate Heart sounds: S1 normal heart sound present and S2 normal heart sound present GI: Inspection: Yes normal to inspection Palpation (GI): Soft to palpation, nontender, no guarding and not rigid : External Female Exam: normal external appearance Speculum Exam - Vagina: abnormal vaginal discharge white and clear, no lesions, No vaginal bleeding and nontender Speculum Exam - Cervix: normal appearance of the cervix, normal palpation, Cervical os closed and nontender Bimanual exam- vagina & uterus: normal bimanual exam, normal palpation, No Cervical tenderness present and no cervical motion tenderness Bimanual Exam- Adnexa, other: n ormal adnexae and no tenderness OB/external & speculum: No vaginal bleeding Skin: Rashes: no rashes Wounds: no wounds Neuro: General: patient oriented x3, tone normal and no meningeal signs C ranial nerves: Yes CN's II-XII intact bilaterally Gait exam (Neuro): Normal gait present Extrem: General: Yes normal to inspection Course Course Course Narrative: -labs reassuring, hCG 6864 -UA contaminated however appears infected > will treat with p.o. antibiotics US OB pelvic and transvaginal IMPRESSION: Single intrauterine gestational sac without a pole. Consider early . Recommend follow-up ultrasound. No ovarian torsion. > will consult OBGYN, Dr. Belcher >> Dr. Belcher recommends follow-up ultrasound in 11 days. No radiographic criteria for demise. Discussed spontaneous warnings including if patient develops increasing pain, cramping, bleeding return to the ED immediately. She verbalized understanding. Patient states she has been trying to get in with [facility] however has been unsuccessful, patient can follow- up in Dr. Belcher's office. -patient is O negative > discussed with laboratory, RhoGAM indicated, we will also run antibody screening Secured patient appointment in Dr. Belcher's office on Wednesday 05/02 at 09:30 > Results discussed with patient including worrisome signs and symptoms and strict return precautions, and when to return to the emergency department. They verbalized understanding and feel safe for discharge at this time. Medications Administered Discontinued Medications Generic Name Dose Route Start Last Admin Trade Name Freq PRN Reason Stop Dose Admin Rho Immune Globulin 300 mcg 04/26/24 15:08 04/26/24 15:38 Rho(D) Immune Globulin 300 Mcg Syringe IM 04/26/24 15:09 300 mcg ONCE ONE Administration Medical Decision Making Medical Decision Making MDM Narrative: 28-year-old female with positive home test, LMP 02/21 presenting to the ED complaining of lower abdominal cramping and vaginal spotting x this morning. On exam vital signs stable, NAD, nontoxic appearing, abdomen soft/nontender, on pelvic exam white/clear vaginal discharge noted, no CMT or adnexal tenderness/masses. No active bleeding. Os closed. Concern for normal vs threatened or missed . Rule out UTI/STI. Low suspicion for ovarian torsion, appendicitis/diverticulitis, or PID Plan: Labs, UA, STI testing, ultrasound, re-evaluate Please refer to course for remaining clinical decision making, interpretation of labs/imaging results, and discussions with consultants and/or family members. Differential Diagnosis Differential Diagnoses: The differential diagnosis associated with the presentation includes As above Admission/Observation Consideration of admission/observation: Escalation of care including admission/observation considered Consult Healthcare Provider Management of the patient was discussed with: Fixing Carpenter (OBYAMINI, Dr. Belcher) Lab Data [facility] Lab Attestation statement: I reviewed the patient's lab results. 04/26/24 10:39 04/26/24 10:39 Labs: Lab Results 04/26/24 04/26/24 Range/Units 10:39 14:34 WBC 5.6 (4.8-10.8) X10*3/uL RBC 4.33 (4.20-5.50) X10*6/uL Hgb 12.8 (12.0-16.0) g/dl Hct 36.2 L (37.0-47.0) % MCV 83.6 (80.0-98.0) fL MCH 29.6 (27.0-33.0) pg MCHC 35.4 H (31.0-35.0) g/dl RDW 12.5 (11.0-16.0) % Plt Count 222 (160-400) X10*3/uL MPV 12.0 (9.4-12.3) fL Immature Gran % (Auto) 0.4 (0.0-0.4) % Neut % (Auto) 67.3 (45-73) % Lymph % (Auto) 24.7 (20-40) % [place] % (Auto) 6.0 (2-11) % Eos % (Auto) 1.4 (0-4) % Baso % (Auto) 0.2 (0-2) % Lymph # (Auto) 1.4 (1.2-4.9) X10*3/uL [place] # (Auto) 0.3 (0.1-1.2) X10*3/uL Eos # (Auto) 0.1 (0.0-0.4) X10*3/uL Baso # (Auto) 0.0 (0.0-0.2) X10*3/uL Abs Immat Gran (auto) 0.02 (0.00-0.03) X10*3/uL Absolute Neuts (auto) 3.8 (2.0-8.3) x10*3/uL Absolute Nucleated RBC 0.000 (0.0-0.012) X10*3/uL Nucleated RBC % (auto) 0.0 (0.0-0.2) /100WBC Sodium 138 (135-145) mmol/L Potassium 3.9 (3.3-5.1) mmol/L Chloride 106 (96-108) mmol/L Carbon Dioxide 26 (22-29) mmol/L Anion Gap 10 L (12-20) BUN 11 (9-16) mg/dL Creatinine 0.65 (0.5-1.4) mg/dL Estim Creat Clear Calc 131.4 Estimated GFR > 60 Random Glucose 84 (60-115) mg/dL Calcium 9.6 (8.4-10.2) mg/dL Total Bilirubin 0.4 (0.0-1.0) mg/dL AST 19 (5-31) U/L ALT 19 (0-31) U/L Alkaline Phosphatase 66 (39-117) U/L Total Protein 7.3 (6.5-8.0) g/dL Albumin 4.3 (3.5-5.0) g/dL Beta HCG, Quant 6864 mIU/mL Urine Color Yellow Urine Appearance Cloudy Urine pH 6.0 (5.0-9.0) Ur Specific [place] 1.010 (1.005-1.025) Urine Protein Negative (Neg-Trace) mg/dL Urine Glucose (UA) Negative (Negative) mg/dL Urine Ketones Negative (Negative) mg/dL Urine Blood Negative (Negative) Urine Nitrite Positive H (Negative) Ur Leukocyte Esterase Moderate (2+) H (Negative) Urine RBC 0-2 (0-2) /HPF Urine WBC 21-50 H (0-5) /HPF Ur Squamous Epith Cells 6-10 (0-2) /HPF Urine Bacteria 4+ (None Seen) Hyaline Casts 0-2 (0-2) /LPF Blood Type O Negative Antibody Screen NEGATIVE Independent Interpretation I performed an independent interpretation of an: Ultrasound Radiology Impression Discussion of test interpretation with radiology: I have reviewed the radiologist's reading. External Record Review External record reviewed: Inpatient record, Office record, Outpatient record, Prior outpatient labs, Prior outpatient radiology, Primary care record and Outside ED record Tests considered The following testing was considered but not selected: As above Prescription Management I considered prescription management with: Pain Medication and Antibiotic Social Determinants Patient?s care significantly limited by Social Determinants of Health including: Other Social Determinant of Health Discharge Plan Discharge Clinical Impression: Bleeding in early , UTI (urinary tract infection) Patient Disposition: Home, Self-Care Instructions: Abdominal Pain in (ED) Additional Instructions: Your beta quant was 6864 You were given RhoGAM today in the emergency department due to your blood type. YOU NEED TO FOLLOW-UP WITH THE OBGYN OFFICE ON WEDNESDAY 05/02 AT 09:30 IN THE MORNING, [address] Keflex as an antibiotic, please take as prescribed for your urine infection IF YOU DEVELOP ANY INCREASING PAIN, CRAMPING, VAGINAL BLEEDING RETURN TO THE ED IMMEDIATELY US OB pelvic and transvaginal IMPRESSION: Single intrauterine gestational sac without a pole. Consider early . Recommend follow-up ultrasound. No ovarian torsion. Prescriptions: New cephalexin 500 mg capsule 500 mg PO BID 5 Days Qty: 10 0RF No Action Nexplanon cefuroxime axetil 250 mg tablet 250 mg PO BID 7 Days Qty: 14 0RF diphenhydramine HCl [Benadryl] 25 mg capsule 25 mg PO TID PRN (Reason: allergic reaction) Qty: 21 0RF prednisone 20 mg tablet 40 mg PO DAILY 5 Days Qty: 10 0RF famotidine [Pepcid] 20 mg tablet 20 mg PO BID 7 Days Qty: 14 0RF Referrals: [facility] [Provider Group] - 05/02/24 9:30 am Print Language: Faroese
[2024-04-26 14:16] VITALS: BP 115/75; PULSE 80; RESP 14; TEMP 36.8; O2SAT 100
--- NOTE | 2024-04-26 14:24 | P.CONOB_ITS ---
RESEARCH PHLEBOTOMIST - CN: HPI Data of Consult Consult date: 04/26/24 Primary Care Provider: Unknown Physician Consult Narrative Narrative: I was consulted on Ruth Kasper is a 28 year old female 2 para 1 LMP 02/21 presented emergency room complaining of pelvic cramping and mild vaginal spotting since this morning. Positive urine test on 04/14. [facility] 44 and increased from 44-88 in 48 hours. HCG today 6864 cc:: CC: OB [facility] Past Medical History Medical History Hx: UTI (urinary tract infection) Back pain Hx of Clostridium difficile infection Surgical History Surgical History Previous section Social History Social History Alcohol intake: never Patient Tobacco Use Status: Current someday Tobacco user Tobacco use type: Cigarette Cigarettes Per Day: 44 Years Smoked: 7 Meds Allergies Allergy/AdvReac Type Severity Reaction Status Date / Time Penicillins Allergy Unknown Verified 04/26/24 10:28 Home Medications ?Medication ?Instructions ?Recorded ?Confirmed ?Last Taken ?Type Nexplanon 03/25/22 03/25/22 Unknown History RESEARCH PHLEBOTOMIST Physical Exam Vitals Vital signs: Temp Pulse Resp BP Pulse Ox O2 Del Method 98.3 F 80 14 115/75 100 Room Air 04/26/24 14:16 04/26/24 14:16 04/26/24 14:16 04/26/24 14:16 04/26/24 14:16 04/26/24 14:16 BMI result Body Mass Index 38.0 Additional Comments: Reported by melisa Nowak NP ; No blood per vagina , closed cervix, no adnexal uterine tenderness RESEARCH PHLEBOTOMIST - Results Labs 04/26/24 10:39 04/26/24 10:39 Labs: Short CBC 04/26/24 Range/Units 10:39 WBC 5.6 (4.8-10.8) X10*3/uL Hgb 12.8 (12.0-16.0) g/dl Hct 36.2 L (37.0-47.0) % Plt Count 222 (160-400) X10*3/uL BMP 04/26/24 10:39 Sodium 138 Potassium 3.9 Chloride 106 Carbon Dioxide 26 BUN 11 Creatinine 0.65 Calcium 9.6 Liver Function 04/26/24 Range/Units 10:39 Total Bilirubin 0.4 (0.0-1.0) mg/dL AST 19 (5-31) U/L ALT 19 (0-31) U/L Alkaline Phosphatase 66 (39-117) U/L Albumin 4.3 (3.5-5.0) g/dL Urine 04/26/24 Range/Units 10:39 Urine Color Yellow Urine Appearance Cloudy Urine pH 6.0 (5.0-9.0) Ur Specific [place] 1.010 (1.005-1.025) Urine Protein Negative (Neg-Trace) mg/dL Urine Glucose (UA) Negative (Negative) mg/dL Imaging US - abdomen: Radiologist's impression: ITS Impressions Pelvic/Transvag US 04/26/24 12:40 IMPRESSION: Single intrauterine gestational sac without a pole. Consider early . Recommend follow-up ultrasound. No ovarian torsion. Electronically signed by: Ritchie Sutton MD 04/26/2024 01:35 PM [facility] Assessment and Plan (1) Early stage of : Status: Acute Since MSD=6.7 cm, with intrauterine gestational sac, yolk sac and no evidence of pole with no cardiac activity, there is no ultrasonographic criteria for demise. Recommend to Melisa Nowak NP in the emergency room the following: Check Rh status, and antibody screen if Rh is negative and antibody screen is negative, RhoGAM 300 mcg IM GC/CT Order a repeat ultrasound in 11 days SAB warnings to be given to patient, Instructions to be given to patient to; Schedule a close outpatient follow-up appointment with the patient's OBGYN within few days, come back to the emergency room in case of pelvic cramping and or bleeding/ I spent a total of 20 minutes reviewing the chart, communicating with the emergency room provider and documenting in the medical record.
[2024-04-26] MEDS: Rho(D) Immune Globulin 300 MCG SYRINGE IM (15:38)
--- NOTE | 2024-04-26 15:41 | PC.NURSE ---
PT medicated per aug, card with med given, information sheet given.
--- NOTE | 2024-04-26 15:52 | PC.NURSE ---
Received a call from [facility] bank message was to notify provider that antibody screening was negative. During the call i also asked Silvestre from blood bank if they needed a copy of the Rhogam paperwork they clarified they did not, blood bank said that lab did not need it as well, but pharmacy might i called pharmacy and spoke to Antione and he also stated he did not need the paperwork. Paperwork given to placement secretary to put in pt's chart.
[2024-04-26 16:58] VITALS: BP 115/75; PULSE 80; RESP 14; TEMP 36.8; O2SAT 100
[2024-04-26 18:23] LABS: Bacterial Vaginosis PCR POSITIVE (Negative); Candida Group PCR NOT DETECTED (Not Detect); Candida glab krusei PCR NOT DETECTED (Not Detect); Trichomonas vaginalis PCR NOT DETECTED (Not Detect)
[2024-04-26 18:54] LABS: CT PCR NOT DETECTED (Not Detect.); NG PCR NOT DETECTED (Not Detect.)
== END 2024-04-26 16:58 | disposition home or self-care (01) ==
PROVIDERS: Physician Assistant; Emergency Provider Emergency Medicine
DX: O20.9 Hemorrhage in early pregnancy, unspecified (principal); O23.41 Unspecified infection of urinary tract in pregnancy, first trimester; N39.0 Urinary tract infection, site not specified; Z3A.01 Less than 8 weeks gestation of pregnancy
CPT/HCPCS: 0352U; 36415; 76801; 76817; 80053; 81001; 84702; 85025; 86850; 86900; 86901; 87086; 87088; 87186; 87491; 87591; 96372; 99283; 99284; J2790

== ENCOUNTER → 2024-04-26 11:55 | Outpatient (BNV) | payer SELFPAY | PROVIDERS: Emergency Provider Emergency Medicine; Visit Provider Obstetrics & Gynecology | DX: Z34.90 Encounter for supervision of normal pregnancy, unspecified, unspecified trimester (principal) | CPT/HCPCS: 99283 ==

== ENCOUNTER 2024-05-02 09:36 | Outpatient (AMB) | payer MEDICAID, SELFPAY ==
--- NOTE | 2024-05-02 09:40 | A.OFFVISPN_ITS ---
Intake Vital Signs 05/02/24 09:42 BP 126/62 Intake Visit Reasons: Bleeding in early Intake Note: Per patient no longer experiencing bleeding Shingle Bolt Cutter: Shingle Bolt Cutter Present (Jackie) Accompanied by: Spouse Allergies penicillin V Allergy (Unknown, Verified 05/02/24 09:41) anaphylaxis Penicillins Allergy (Verified 05/02/24 09:41) Unknown [facility] Medical History Hx: UTI (urinary tract infection) Back pain Hx of Clostridium difficile infection Surgical History Previous section Social History (System 04/29/24 @ 16:30 by Casimiro Burgos) Alcohol intake: never Patient Tobacco Use Status: Current someday Tobacco user Tobacco use type: Cigarette Cigarettes Per Day: 44 Years Smoked: 7 Coding
[2024-05-02 09:42] VITALS: BP 126/62
--- NOTE | 2024-05-02 09:43 | MHC.OFFVIS ---
Vital Signs 05/02/24 09:42 BP 126/62 Intake Visit Reasons: Bleeding in early Allergies penicillin V Allergy (Unknown, Verified 05/02/24 09:41) anaphylaxis Penicillins Allergy (Verified 05/02/24 09:41) Unknown HPI Comments Details: Presenting for ED follow-up visit on 04/26. The patient went to the emergency room with vaginal bleeding the following workup was done: H&H= 12.8/36.2 GC/CT negative BV panel showed Gardnerella positive, the patient was prescribed Flagyl 500 mg p.o. b.i.d. for 1 week. HCG 6864 Blood type O negative antibody screen negative, RhoGAM 300 mcg given to the patient. Pelvic ultrasound showed the following: IMPRESSION: Single intrauterine gestational sac without a pole. Consider early . Recommend follow-up ultrasound. No ovarian torsion. [facility] Medical History Hx: UTI (urinary tract infection) Back pain Hx of Clostridium difficile infection Surgical History Previous section Social History Alcohol intake: never Patient Tobacco Use Status: Current someday Tobacco user Tobacco use type: Cigarette Cigarettes Per Day: 44 Years Smoked: 7 Review of Systems Const All systems reviewed & are unremarkable except as noted in HPI and below Reports as per HPI and Reports no additional complaints GI Reports no additional complaints Reports no additional complaints Physical Exam Vital Signs: Last Vital Signs BP 126/62 05/02/24 09:42 Assessment & Plan Assessment & Plan (1) Early stage of : Code(s): Z34.90 - Encounter for supervision of normal , unspecified, unspecified trimester Category: Medical Plan: Since MSD on 04/26 was 6.7 mm with no evidence of pole, a repeat ultrasound at least 11 days from previous ultrasound was ordered on 07/10/2023. vitamin tablet p.o. q.d. SAB warnings given to patient, she is to call or go to emergency room in case of pelvic cramping and or bleeding Instructions given to patient to schedule an ultrasound follow-up appointment. All questions answered, the patient verbalized understanding Orders: Orders US OB <= 14 weeks fetus 05/09/24 Z34.90 - Encounter for supervision of normal , unspecified, unspecified trimester Coding Level of Care Code Est Pt Level 3 (00532) Diagnoses Early stage of Z34.90
== END 2024-05-02 10:05 | disposition home or self-care (01) ==
PROVIDERS: Visit Provider Obstetrics & Gynecology
DX: Z34.90 Encounter for supervision of normal pregnancy, unspecified, unspecified trimester (principal)
CPT/HCPCS: 99213

== ENCOUNTER → 2024-05-02 09:36 | Outpatient (BNVA) | payer MEDICAID, SELFPAY | PROVIDERS: Visit Provider Obstetrics & Gynecology | DX: O20.9 Hemorrhage in early pregnancy, unspecified (principal); O99.330 Smoking (tobacco) complicating pregnancy, unspecified trimester; F17.210 Nicotine dependence, cigarettes, uncomplicated | CPT/HCPCS: 99212 ==

== ENCOUNTER 2024-05-09 09:13 | Outpatient (REF) | payer MEDICAID, SELFPAY | END 2024-05-09 09:14 | disposition home or self-care (01) | LOC: HO.US 09:13 | PROVIDERS: Visit Provider Obstetrics & Gynecology | DX: Z34.90 Encounter for supervision of normal pregnancy, unspecified, unspecified trimester (principal) | CPT/HCPCS: 76801; 76817; 99212 ==

== ENCOUNTER 2024-05-09 10:09 | Outpatient (AMB) | payer MEDICAID, SELFPAY ==
--- NOTE | 2024-05-09 10:11 | A.OFFVIS_ITS ---
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 The patient is doing well with no complaints no vaginal bleeding and or cramping. On vitamin 1 tablet p.o. q.d.. Unofficial reading showed a live intrauterine gestation measuring 6 weeks and 6 days of gestation 8.2 cm CRL with an SHREE of 12/27/24 [facility] Medical History Hx: UTI (urinary tract infection) Back pain Hx of Clostridium difficile infection Surgical History Previous section Social History Alcohol intake: never Patient Tobacco Use Status: Current someday Tobacco user Tobacco use type: Cigarette Cigarettes Per Day: 44 Years Smoked: 7 Review of Systems Const All systems reviewed & are unremarkable except as noted in HPI and below Reports as per HPI and Reports no additional complaints GI Reports no additional complaints Reports no additional complaints Physical Exam Vital Signs: Last Vital Signs BP 126/64 05/09/24 10:12 Assessment & Plan Assessment & Plan (1) Early stage of : Code(s): Z34.90 - Encounter for supervision of normal , unspecified, unspecified trimester Category: Medical Plan: Discussed with the patient unofficial finding on ultrasound will wait for the official report. SAB warnings given the patient, instructions given the patient to call in case of pelvic cramping and or bleeding, vitamin 1 tablet p.o. q.d and to schedule appointment within 2 weeks. The patient has stated that she is interested in having her care at [facility] [place]. Instructions given the patient to schedule an appointment as soon as possible and to call in case she is not able to schedule an appointment a timely manner or with any other problems. All questions answered, the patient verbalized understanding Coding Level of Care Code Est Pt Level 3 (24878) Diagnoses Early stage of Z34.90
[2024-05-09 10:12] VITALS: BP 126/64
== END 2024-05-09 10:35 | disposition home or self-care (01) ==
PROVIDERS: Visit Provider Obstetrics & Gynecology
DX: Z34.90 Encounter for supervision of normal pregnancy, unspecified, unspecified trimester (principal)
CPT/HCPCS: 99213